=== PATIENT | female | born 1985 | race Caucasian/White ===

== ENCOUNTER 2016-09-05 00:31 | Outpatient (CLI) | payer OTHER ==
--- NOTE | 2016-09-05 10:57 | DIAGNOSTIC IMAGING REPORT ---
PROCEDURE: US OB LIMITED INDICATION: VAGINAL BLEEDING AT 33 WKS GESTATION TECHNIQUE: Brunner scale and color Doppler sonographic images obtained of the gravid uterus. COMPARISON: None. FINDINGS: There is a third trimester viable intrauterine in cephalic position with cardiac activity (126). Grade 3 anterior placenta. There is no evidence of previa or abruption. Prominent venous lakes. Cervix length is obscured by head position. Amniotic fluid index 9.6 cm (20th percentile). measurements were not obtained (as requested). IMPRESSION: 1. Third trimester viable intrauterine in cephalic position. 2. Grade 3 anterior placenta without previa or abruption. Prominent placental venous lakes (incidental finding). 3. Amniotic fluid index 9.6 cm (20th percentile).
== END 2016-09-05 04:30 | disposition home or self-care (01) ==
LOC: OBC SRH 00:31 → OB SRH 00:35 → OBC SRH 04:30
DX: O46.8X3 Other antepartum hemorrhage, third trimester (principal); N93.0 Postcoital and contact bleeding; Z3A.33 33 weeks gestation of pregnancy
CPT/HCPCS: 40003; 40021; 90004; 90469; 92760; 92761; 92762; 92763; 92764; 92765; 92766; 92767